=== PATIENT | male | born 2005 | race Asian ===

== ENCOUNTER → 2024-01-30 | Outpatient (CLI) | payer BC | LOC: PET 13:15 | PROVIDERS: ATTEND Internal Medicine Medical Oncology | DX: C81.92 Hodgkin lymphoma, unspecified, intrathoracic lymph nodes (principal); R59.0 Localized enlarged lymph nodes; J35.3 Hypertrophy of tonsils with hypertrophy of adenoids | CPT/HCPCS: 78815; A9552 ==